=== PATIENT | female | born 1965 | race Caucasian/White ===

== ENCOUNTER → 2016-09-07 | Outpatient (CLI) | payer OTHER ==
--- NOTE | 2016-09-07 14:51 | MAMMOGRAPHY REPORT ---
BILATERAL DIGITAL SCREENING MAMMOGRAM TOMOSYNTHESIS WITH CAD: 09/07/2016 TECHNIQUE: Breast tomosynthesis in addition to standard 2D mammography was performed. Current study was also evaluated with a Computer Aided Detection (CAD) system. COMPARISON: Comparison is made to exams dated: 08/23/2015 mammogram, 08/21/2014 mammogram, 08/15/2011 ma mmogram, 08/20/2013 mammogram, 08/16/2012 mammogram, and 08/03/2010 mammogram - [facility] nt. BREAST COMPOSITION: There are scattered areas of fibroglandular density in both breasts. FINDINGS: No suspicious masses, calcifications, or areas of architectural distortion are noted in e ither breast. There has been no significant interval change compared to prior exams. Scattered bilat eral benign-appearing calcifications are not significantly changed. A biopsy marker clip is again n oted in the right 6:00 breast. IMPRESSION: ACR BI-RADS CATEGORY 2: BENIGN There is no mammographic evidence of malignancy. A 1 year screening mammogram is recommended. The p atient will receive written notification of the results. Approximately 10% of breast cancers are not detected with mammography. A negative mammographic repor t should not delay biopsy if a clinically suggestive mass is present. Sabi Martinez M.D. /:09/07/2016 13:51:44 Payment Collector: Martha DIXON)(M), [facility] letter sent: Normal 1/2 BI-RADS Code: ACR BI-RADS Category 2: Benign
== END | disposition home or self-care (01) ==
LOC: C.MAMM 11:04
DX: Z12.31 Encounter for screening mammogram for malignant neoplasm of breast (principal)

== ENCOUNTER → 2017-09-21 | Outpatient (CLI) | payer OTHER ==
--- NOTE | 2017-09-21 15:27 | MAMMOGRAPHY REPORT ---
BILATERAL DIGITAL SCREENING MAMMOGRAM TOMOSYNTHESIS WITH CAD: 09/21/2017 CLINICAL HISTORY: Routine screening. TECHNIQUE: Breast tomosynthesis in addition to standard 2D mammography was performed. Current study was also evaluated with a Computer Aided Detection (CAD) system. COMPARISON: Comparison is made to exams dated: 09/07/2016 mammogram, 08/23/2015 mammogram, 08/21/2014 ma mmogram, 08/20/2013 mammogram, 08/16/2012 mammogram, and 08/15/2011 mammogram - [facility] BREAST COMPOSITION: There are scattered areas of fibroglandular density in both breasts. FINDINGS: No suspicious masses, calcifications, or areas of architectural distortion are noted in ei ther breast. There has been no significant interval change compared to prior exams. IMPRESSION: ACR BI-RADS CATEGORY 2: BENIGN There is no mammographic evidence of malignancy. A 1 year screening mammogram is recommended. The pa tient will receive written notification of the results. Approximately 10% of breast cancers are not detected with mammography. A negative mammographic report should not delay biopsy if a clinically suggestive mass is present. Sabi Martinez M.D. ah/:09/21/2017 14:03:58 Broth Setter: Kip ROSAS(Jayden)(M), [facility] letter sent: Normal 1/2 BI-RADS Code: ACR BI-RADS Category 2: Benign
== END | disposition home or self-care (01) ==
LOC: C.MAMM 13:27
PROVIDERS: ATTEND Physician Assistant
DX: Z12.31 Encounter for screening mammogram for malignant neoplasm of breast (principal)

== ENCOUNTER 2019-06-12 08:07 | Inpatient (IN) ==
[2019-05-23 12:24] LABS: Basophils # (auto) 0.03 K/uL (0-0.2); Basophils % (auto) 0.5 %; Eosinophils # (auto) 0.08 K/uL (0-0.5); Eosinophils % (auto) 1.4 %; Hematocrit (blood only) 39.5 % (37-47); Hemoglobin 13.5 g/dL (12.0-16.0); Immature Granulocytes # (auto) 0.01 K/uL (0.00-0.02); Immature Granulocytes % (auto) 0.2 %; Lymphocytes # (auto) 1.94 K/uL (1.2-3.4); Lymphocytes % (auto) 33.8 %; Mean Corpuscular Hemoglobin 31.5 pg (25-34); Mean Corpuscular Hgb Conc 34.2 g/dL (32-36); Mean Corpuscular Volume 92.1 fL (80-100); Mean Platelet Volume 9.7 fL (7.4-10.4); Monocytes # (auto) 0.35 K/uL (0.11-0.59); Monocytes % (auto) 6.1 %; Neutrophils # (auto) 3.33 K/uL (1.4-6.5); Platelet Count 266 K/uL (130-400); RDW Coefficient of Variation 12.6 % (11.5-14.5); RDW Standard Deviation 42.4 fL (36.4-46.3); Red Blood Count 4.29 M/uL (4.2-5.4); White Blood Count 5.74 K/uL (4.8-10.8)
[2019-05-23 12:37] LABS: Partial Thromboplastin Ratio 1.1; Partial Thromboplastin Time 30.8 Seconds (21.0-31.0); Prothrombin Time 10.5 Seconds (9.0-12.0)
[2019-05-23 12:58] LABS: BUN Creatinine Ratio 10.3 (10-20); Blood Urea Nitrogen 8 mg/dl (7-18); Calcium 9.1 mg/dl (8.5-10.1); Carbon Dioxide 29 mmol/L (21-32); Chloride 106 mmol/L (98-107); Est GFR (African American) 107.2; Est GFR (Non-African American) 92.5; Glucose 79 mg/dl (70-99); Potassium 4.1 mmol/L (3.5-5.1); Sodium 139 mmol/L (136-145)
--- NOTE | 2019-05-28 13:10 | Anesthesiology Consultation ---
Date of Service May 28, 2019 Assessment & Plan Chart Review Chart Review: Acceptable Risk for Surgery and Patient NOT seen in Pre Admission Testing History Surgery Operation Date: 06/12/19 07:30 Proposed Procedures p L3-L4, L4-L5 Laminectomy and Fusion - Abelardo Zaldivar DO Height/Weight Height: 5 ft 1 in Weight: 72.575 kg Allergies Allergy/AdvReac Type Severity Reaction Status Date / Time No Known Allergies Allergy Verified 05/26/19 14:47 Medications Home Medications Medication Instructions Recorded Confirmed Last Taken oxycodone 5 mg PO Q6H PRN #14 tab 05/07/19 05/26/19 Unknown alprazolam 0.5 mg PO QPM 05/26/19 05/26/19 Unknown cholecalciferol (vitamin D3) 2,000 unit PO QPM 05/26/19 05/26/19 Unknown [Vitamin D3] gabapentin 400 mg PO HS 05/26/19 05/26/19 Unknown ibuprofen [Advil] 200 - 400 mg PO Q6H PRN 05/26/19 05/26/19 Unknown inulin [Fiber Gummies] 2 g PO QAM 05/26/19 05/26/19 Unknown nmwoifzaaarm-cpmm-bzosh acid 1 tab PO QAM 05/26/19 05/26/19 Unknown [Centrum Women] paroxetine HCl 20 mg PO QPM 05/26/19 05/26/19 Unknown Past Medical History Medical History Anxiety Spinal stenosis ALSO HAS BULDGING DISC Past Family History Family History Father Family history of diabetes mellitus Sister Family history of diabetes mellitus Other No significant family history Past Surgical History Surgical History History of colonoscopy History of partial knee replacement BOTH KNEES Social History Smoking Status: Former smoker Do You Dip or Chew Tobacco: No Smoking End Date: YEARS AGO ? DATE Hx Alcohol Use: Yes Alcohol type: wine alcohol intake frequency: holidays/special occasions only Hx Substance Use: No Testing Laboratory Results 05/23/19 11:11 05/23/19 11:11 PT 10.5 Seconds (9.0-12.0) 05/23/19 11:11 INR 1.0 (0.9-1.1) 05/23/19 11:11 APTT 30.8 Seconds (21.0-31.0) 05/23/19 11:11 Blood Type O Positive 05/23/19 11:13 Antibody Screen NEGATIVE 05/23/19 11:13 Electrocardiogram Date: 05/23/19 Findings: + NSR @ (62 bpm) Chest X-Ray Date: 05/23/19 Findings: + NAD
--- NOTE | 2019-06-11 13:31 | History and Physical Report ---
DATE OF ADMISSION: 06/12/2019 She is for preop surgery tomorrow for laminectomy and fusion L3-L5. PAST MEDICAL HISTORY: Positive for usual childhood diseases. No hypertension, diabetes, carcinoma, or kidney disease. PAST SURGICAL HISTORY: Left knee meniscectomy. ALLERGIES: Negative. FAMILY HISTORY: Heart disease, stroke. SOCIAL HISTORY: . Minimal alcohol. No tobacco. Very active lifestyle. Two grown children. REVIEW OF SYSTEMS: Twelve-system review is negative for fevers, sweats, chills. Ear, nose and throat negative. Denies chest pain or palpitations. No asthma or wheezing. No nausea, vomiting, urgency, frequency, or dysuria. She has joint pain, stiffness and neurogenic claudication. MEDICATIONS: Advil and one medication for anxiety. OBJECTIVE: GENERAL: She is 5 feet 1 inch, 138 pounds. VITAL SIGNS: Blood pressure 130/80, pulse 80. CARDIAC: Normal S1, S2. LUNGS: Clear to auscultation. No wheezing, no rhonchi. ABDOMEN: Soft, nontender. MUSCULOSKELETAL: She has decreased range of motion of lumbar spine with flexion and extension. She has no gross neurological deficits. Adequate motor strength and good reflex ability. IMAGES: Demonstrate severe spinal stenosis L3-L4, L4-L5. PLAN: Includes laminectomy and fusion L3-L5.
[~2019-06-12 08:07] MED LIST: ACETAMINOPHEN 1,000 MG/100 ML VIAL IV SCH; ACETAMINOPHEN 500 MG TAB PO SCH; CEFAZOLIN 2000MG 2,000 MG/15 ML SYR IV SCH; LR 15ML/HR IV SCH; SODIUM CHLORIDE 0.9% 1,000 ML IV SCH
[2019-06-12] MEDS ORDERED: ACETAMINOPHEN 1000 MG/100 ML IV IV ONE (09:06)
[2019-06-12] MEDS ORDERED: VANCOMYCIN HCL 1000MG/20ML VIAL ONE (09:49)
[2019-06-12] MEDS ORDERED: THROMBIN FOR SOLN 20000 UNIT KIT ONE (09:49)
[2019-06-12] MEDS ORDERED: GELATIN SPONGE SZ 100 ONE (09:49)
[2019-06-12] MEDS ORDERED: BACITRACIN INJ 50,000 UNIT VIAL ONE (09:49)
[2019-06-12] MEDS ORDERED: ROCURONIUM BROMIDE 10 MG/ML 5 ML VIAL ONE (09:53)
[2019-06-12] MEDS ORDERED: LIDOCAINE HCL 2% 2 ML VIAL/AMP(20MG/ML) INFIL ONE (09:53)
[2019-06-12] MEDS ORDERED: HYDROmorphone INJ 2 MG/ML SYR/VIAL ONE (09:53)
[2019-06-12] MEDS ORDERED: GLYCOPYRROLATE 0.2 MG/ML VIAL ONE (09:53)
[2019-06-12] MEDS ORDERED: MIDAZOLAM HCL 1 MG/ML 2ML VIAL ONE (09:53)
[2019-06-12] MEDS ORDERED: NEOSTIGMINE METHYLSULFATE 5 MG/5 ML SYR ONE (09:53)
[2019-06-12] MEDS ORDERED: PROPOFOL IV EMULSION 10 MG/ML 20 ML VIAL IV ONE (09:53)
[2019-06-12] MEDS ORDERED: LARYING-O-JET KIT (LTA) ONE (09:53)
--- NOTE | 2019-06-12 09:59 | History & Physical Bridge Note ---
Date of Service June 12, 2019 History & Physical Bridge Note I have examined the patient, reviewed the History & Physical and in the interval since the performance of the History & Physical I have noted the following changes of clinical significance: no changes noted
[2019-06-12] MEDS ORDERED: HYDROmorphone INJ 1 MG/ML SYRINGE IV PRN (10:05)
[2019-06-12] MEDS ORDERED: ONDANSETRON INJ 2 MG/ML 2 ML VIAL IV PRN ×2 (10:05→13:01)
[2019-06-12] MEDS ORDERED: fentaNYL citrate 100 MCG/2 ML VIAL IV PRN (10:05)
[2019-06-12] MEDS ORDERED: ATROPINE SULFATE 0.1 MG/ML 10ML SYR IV PRN (10:05)
[2019-06-12] MEDS ORDERED: ePHEDrine sulfate 50 MG/ML AMP IV PRN (10:05)
[2019-06-12] MEDS ORDERED: BUPIVACAINE 0.5 % 5 MG/1 ML MPF 30ML VIAL ONE (10:39)
[2019-06-12] MEDS ORDERED: KETAMINE HCL INJ 50 MG/ML 10 ML VIAL ONE (10:49)
[2019-06-12] MEDS ORDERED: KETOROLAC 30 MG/ML VIAL ONE (11:46)
--- NOTE | 2019-06-12 11:57 | Post Operative Brief Note ---
PG Immediate Post Op with CF Date of Surgery June 12, 2019 Pre & Post Diagnosis Operation Date: 06/12/19 09:50 Pre-Op Diagnosis: Spinal Stenosis Post-Op Diagnosis: Spinal Stenosis I identified the patient and participated in the time-out.: Yes Procedure Operation Date: 06/12/19 09:50 Actual Procedures p L3-L5 Decompression, and Fusion L4-L5(Not Applicable) - Abelardo Zaldivar DO Surgeon Abelardo Zaldivar DO [employer] terry Estimated Blood Loss 200 Findings Consistent with Post-Op Diagnosis Specimens Specimen Description: None Per Surgeon Drains Davidson Catheter and Hemovac Drain
--- NOTE | 2019-06-12 12:07 | Operative Report ---
Post Operative Report Pre & Post Diagnosis Operation Date: 06/12/19 09:50 Pre-Op Diagnosis: Spinal Stenosis Post-Op Diagnosis: Spinal Stenosis I identified the patient and participated in the time-out.: Yes Procedure Operation Date: 06/12/19 09:50 Actual Procedures p L3-L5 Decompression, and Fusion L4-L5(Not Applicable) - Abelardo Zaldivar DO Surgeon Abelardo Zaldivar DO Computer Typesetter terry Estimated Blood Loss 200 Findings Consistent with Post-Op Diagnosis Specimens No specimens Description of Procedure Patient was taken to the operating room general intubated anesthetic provided the patient placed prone on the [place] table. Formal timeout was provided to the patient commenced with surgery scrubbed prepped draped sterile. A skin incision fashion incision. Dissecting down to the facet joints lamina and transverse processes. We did form a midline laminectomy L5 L4 and 3 foraminotomies and partial facetectomies. We did sacrifice all the facets at the 4 5 interval I was able to preserve the facets at the L3-4 interval. Decompressed all the neural elements and ligamentum flavum hypertrophy cut the facet joints. After completion of the dissection I was very pleased with the freedom of the nerve root visualized to be free and probed to be free. Since ice sacrificed much of the facet joints I felt it was appropriate to instrument infuse a spine particularly at L4-5 safely was able to get pedicle screws at L4 and 5 bilaterally. Crosstable imaging in each step was appropriate proper positioning I then selected a longitudinal construct to place at the between the screws at 4 [address]. Then bone grafted out of the transverse processes irrigated thoroughly closed over vancomycin powder and a Hemovac drain with 1 Vicryl suture 2 oh in a subcuticular layer staple gun and the skin para Implants used by the [employer] needle count correct at the close patient returned to recovery room satisfactory stable condition no complications I attest to the content of the Intraoperative Record and any orders documented therein. Any exceptions are noted below.
--- NOTE | 2019-06-12 12:09 | Post Operative Brief Note ---
PG Immediate Post Op with CF Date of Surgery June 12, 2019 Pre & Post Diagnosis Operation Date: 06/12/19 09:50 Pre-Op Diagnosis: Spinal Stenosis Post-Op Diagnosis: Spinal Stenosis I identified the patient and participated in the time-out.: Yes Procedure Operation Date: 06/12/19 09:50 Actual Procedures p L3-L5 Decompression, and Fusion L4-L5(Not Applicable) - Abelardo Zaldivar DO Formal procedure: Decompression laminectomy L3-L4-L5 lumbar spine #2: Ankle screw instrumentation L4-L5 lumbar spine #3: Posterior lateral fusion L4-5 Surgeon Abelardo Zaldivar DO [employer]pler terry Estimated Blood Loss 200 Findings Consistent with Post-Op Diagnosis Specimens Specimen Description: None Per Surgeon Drains Davidson Catheter and Hemovac Drain
--- NOTE | 2019-06-12 12:19 | Fluoroscopy Report ---
FL spine 1V any level CLINICAL HISTORY: Laminectomy and fusion. COMPARISON STUDY: Lumbar spine MRI April 16, 2019. FLUOROSCOPY TIME: 8.3 seconds. FLUOROSCOPIC IMAGES: 1 FINDINGS: This image demonstrate bilateral pedicle screws at the L4 and L5 levels. IMPRESSION: Fluoroscopic image demonstrating placement of bilateral pedicle screws at the L4 and L5 levels. Electronically signed by: David Edmondson M.D. 06/12/2019 12:18 PM
--- NOTE | 2019-06-12 12:46 | Anesthesiology Progress Note ---
Date of Service June 12, 2019 Anesthesia Post Procedure Vital Signs Vital Signs: Temp Pulse Pulse Resp BP Pulse Ox 06/12/19 12:40 36.2 C L 75 14 143/79 H 99 06/12/19 12:30 72 14 140/84 100 06/12/19 12:20 84 15 136/84 100 06/12/19 12:10 85 16 143/72 H 100 06/12/19 12:04 36.2 C L 69 16 117/63 100 06/12/19 08:52 36.6 C 64 16 128/78 98 Pain Intensity Bilateral Lower Back: Pain Intensity: 2 Transfer of Care Handoff Completed per policy Notes Mental Status: alert / awake / arousable and participated in evaluation Patient Amnestic to Procedure: Yes Nausea / Vomiting: adequately controlled Pain: adequately controlled Airway Patency, RR, SpO2: stable & adequate BP & HR: stable & adequate Hydration State: stable & adequate Anesthetic Complications: no major complications apparent and Pt Satisfied with anesthetic care
[2019-06-12] MEDS ORDERED: PROMETHAZINE HCL 12.5 MG in SODIUM CHLORIDE 0.9% 50 ML IV PRN (13:01)
[2019-06-12] MEDS ORDERED: ACETAMINOPHEN 1,000 MG/100 ML VIAL IV PRN (13:01)
[2019-06-12] MEDS ORDERED: FAMOTIDINE 20 MG TAB PO PRN (13:01)
[2019-06-12] MEDS ORDERED: bisacodyL 10 MG SUPP PR PRN (13:01)
[2019-06-12] MEDS ORDERED: DO NOT ADMINISTER FLU VACCINE PRN (13:01)
[2019-06-12] MEDS ORDERED: MAGNESIUM HYDROXIDE SUSP 30 ML UDC PO PRN (13:01)
[2019-06-12] MEDS ORDERED: DO NOT ADMINISTER PNEUMOCOCCAL VACCINE PRN (13:01)
[2019-06-12] MEDS ORDERED: NALOXONE HCL 0.4 MG/1 ML VIAL/CARP IV PRN (13:01)
[2019-06-12] MEDS ORDERED: SOD PHOSPHATE/SOD BIPHOSPHATE ENEMA 132 ML BTL PR PRN (13:01)
[2019-06-12] MEDS ORDERED: ALUMINUM/MAGNESIUM SUSP 30 ML UDC PO PRN (13:01)
[2019-06-12] MEDS ORDERED: ONDANSETRON 4 MG OD TAB PO PRN (13:01)
[2019-06-12] MEDS: HYDROmorphone INJ 0.5 MG/0.5 ML SYR IV PRN ×2 (13:30→17:13)
[2019-06-12] MEDS: SODIUM CHLORIDE 0.9% 1000ML 1,000 ML IV SCH (13:38)
[2019-06-12] MEDS: OXYCODONE HCL IR 5 MG TAB (IMMEDIATE RELEASE) PO PRN (16:09)
[2019-06-12] MEDS: CYCLOBENZAPRINE HCL 10 MG TAB PO PRN (17:02)
[2019-06-12] MEDS: CEFAZOLIN 2000MG 2,000 MG/15 ML SYR IV SCH (17:49)
[2019-06-12] MEDS: CHOLECALCIFEROL 1,000 UNITS TAB PO SCH (20:45)
[2019-06-12] MEDS: DOCUSATE SODIUM/SENNA 50/8.6MG TAB PO SCH (20:45)
[2019-06-12] MEDS: PARoxetine HCl 20 MG TAB PO SCH (20:45)
[2019-06-12] MEDS: GABAPENTIN 400 MG CAP PO SCH (20:45)
[2019-06-12] MEDS: ALPRAZolam 0.5 MG TABLET PO PRN (21:38)
[2019-06-13] MEDS: CEFAZOLIN 2000MG 2,000 MG/15 ML SYR IV SCH (02:28)
[2019-06-13] MEDS: CYCLOBENZAPRINE HCL 10 MG TAB PO PRN ×3 (02:38→19:27)
[2019-06-13] MEDS: SODIUM CHLORIDE 0.9% 1000ML 1,000 ML IV SCH (02:46)
[2019-06-13] MEDS: POLYETHYLENE (MIRALAX) 17 GM PACK PO SCH ×4 (05:41→23:45)
[2019-06-13] MEDS: OXYCODONE HCL IR 5 MG TAB (IMMEDIATE RELEASE) PO PRN ×4 (05:46→21:45)
--- NOTE | 2019-06-13 07:57 | Anesthesiology Progress Note ---
Date of Service June 13, 2019 Anesthesia Post Procedure Vital Signs Vital Signs: Temp Pulse Pulse Pulse Resp BP Pulse Ox 06/13/19 06:55 36.8 C 79 17 100/63 98 06/13/19 02:47 36.5 C 71 16 113/76 98 06/12/19 23:15 36.5 C 74 16 105/67 96 06/12/19 19:07 36.4 C L 88 16 138/78 98 06/12/19 16:05 36.5 C 84 18 127/77 96 06/12/19 14:54 36.3 C L 80 17 113/74 98 06/12/19 13:52 36.5 C 70 17 114/76 99 06/12/19 13:18 71 16 124/80 100 06/12/19 12:50 36.6 C 78 14 147/88 H 100 06/12/19 12:40 36.2 C L 75 14 143/79 H 99 06/12/19 12:30 72 14 140/84 100 06/12/19 12:20 84 15 136/84 100 06/12/19 12:10 85 16 143/72 H 100 06/12/19 12:04 36.2 C L 69 16 117/63 100 06/12/19 08:52 36.6 C 64 16 128/78 98 Pain Intensity Bilateral Lower Back: Pain Intensity: 2 Bilateral Leg: Pain Intensity: 4 Notes Mental Status: alert / awake / arousable and participated in evaluation Patient Amnestic to Procedure: Yes Nausea / Vomiting: adequately controlled Pain: adequately controlled Airway Patency, RR, SpO2: stable & adequate BP & HR: stable & adequate Hydration State: stable & adequate Anesthetic Complications: no major complications apparent and Pt Satisfied with anesthetic care
[2019-06-13] MEDS: HYDROmorphone INJ 0.5 MG/0.5 ML SYR IV PRN ×2 (17:25→23:45)
[2019-06-13] MEDS: GABAPENTIN 400 MG CAP PO SCH (21:06)
[2019-06-13] MEDS: PARoxetine HCl 20 MG TAB PO SCH (21:06)
[2019-06-13] MEDS: DOCUSATE SODIUM/SENNA 50/8.6MG TAB PO SCH (21:07)
[2019-06-13] MEDS: CHOLECALCIFEROL 1,000 UNITS TAB PO SCH (21:07)
[2019-06-13] MEDS: ALPRAZolam 0.5 MG TABLET PO PRN (21:10)
[2019-06-14] MEDS: POLYETHYLENE (MIRALAX) 17 GM PACK PO SCH (05:56)
[2019-06-14] MEDS: OXYCODONE HCL IR 5 MG TAB (IMMEDIATE RELEASE) PO PRN ×2 (05:56→10:00)
[2019-06-14] MEDS: CYCLOBENZAPRINE HCL 10 MG TAB PO PRN (08:41)
--- NOTE | 2019-06-16 07:49 | Discharge Summary ---
SUBJECTIVE: She is alert, oriented, minimal complaints of pain, no chest pain, shortness of breath. Some cramping. OBJECTIVE: Vital signs: Stable, afebrile. Wound protected. ASSESSMENT: Status post reconstructive spine surgery. PLAN: We will discharge her home later on this morning. She has a walker at home. She has medications E-prescribed to her pharmacy. She has a followup appointment. Instructions, precautions provided.
--- NOTE | 2019-06-19 07:33 | Coding Query ---
CODING QUERY To promote full compliance with coding requirements relating to patient care, provider participation is requested in all cases of research statistician uncertainty. Please assist us with the question(s) below: Coding Question(s): Please specify below, regarding the type of Bone Graft used in the 06/12/19 procedure. ( ) Autologous ( ) Non-Autologous ( ) Both Autologous and Non-Autologous ( ) Other: Pleas Specify Physician's Response(s): Thank you Doris Carson Principal Diagnosis: "that condition established after study, to be chiefly responsible for occasioning the admission of the patient to the hospital for care." Co-Existing Principal Diagnosis: "when two or more diagnoses equally meet the criteria for principal diagnosis as determined by the circumstances of admission, diagnostic work up, and/or therapy provided, and the Alphabetic Index, Tabular List, or another coding guideline does not provide sequencing direction, any one of the diagnoses may be sequenced first." "When the physician has documented what appears to be a current diagnosis in the body of the record, but has not included the diagnosis in the final diagnostic statement, the physician should be asked whether the diagnosis should be added." ([facility] 2 QTR90. p3-4) CHYNA
--- NOTE | 2019-06-21 10:30 | Operative Report ---
DATE OF OPERATION: 06/12/2019 Question in regard to bone graft used regarding the procedure on 06/12/2019. I used both autologous bone and demineralized bone matrix or a nonautologous product. I attest to the content of the Intraoperative Record and any orders documented therein. Any exception s are noted below.
== END 2019-06-14 11:43 | disposition home or self-care (01) | DRG 460 ==
LOC: ASU 08:07 → 3E 12:05